=== PATIENT | female | born 1940 | race Caucasian/White ===

== ENCOUNTER 2017-07-14 18:17 | Inpatient (IN) | payer OTHER ==
[~2017-07-14] VITALS: Ht 165.1 cm; Wt 60.9 kg
[~2017-07-14 18:17] MED LIST: ALEVE220 MG PO; ARICEPT5 MG PO; BENADRYL25 MG PO; CALTRATE PLUS1 EACH PO; CELEBREX200 MG PO; CO Q-1010 MG PO; COUMADIN1 MG PO; FEOSOL325 MG PO; KRILL OIL 1,001 EACH PO; LECITHIN-191200 MG PO; METHOCARBAMOL500 MG PO; MULTIPLE VITAM1 EACH PO; MYRBETRIQ50 MG PO; ODORLESS GARLI300 MG PO; OSTEO BI-FLEX1 EAC1 PO; OXYCODONE HCL5 MG PO; SENNA-TIME S T1 EACH PO; SYNTHROID50 MCG PO; TYLENOL EXTRA500 MG PO; ZYFLAMEND PO; [UNRECOGNIZED DRUG - OTHER] PO
[2017-07-14] MEDS ORDERED: ALEVE220 MG PO (19:22)
[2017-07-14 19:37] LABS: HEMATOCRIT 36.8 % (36.0-46.0); MCH 33.2 PG (29.0-34.0); MCHC 34.2 G/DL (30.0-36.0); MCV 97.1 FL (83-99); PLATELET COUNT 158 K/uL (156-360); RED BLOOD COUNT 3.79 M/uL (3.80-5.20); WHITE BLOOD COUNT 7.4 K/uL (4.1-10.2)
[2017-07-14 20:18] LABS: CHLORIDE 109 mEq/L (99-109); POTASSIUM 3.9 mEq/L (3.7-5.4)
[2017-07-14 20:19] LABS: SODIUM 144 mEq/L (136-147)
[2017-07-14 20:20] LABS: GLUCOSE 121 mg/dL (70-99)
[2017-07-14 20:22] LABS: TROP-I INTERPRETATION NEGATIVE; TROPONIN-I 0.02 ng/mL (0.0-0.30)
[2017-07-14 20:22] LABS: ANION GAP 11 MEQ/L (2-14)
[2017-07-14 20:24] LABS: GFR ESTIMATE (CALCULATED) > 59 mL/min/
[2017-07-14 20:25] LABS: UREA NITROGEN (BUN) 21 mg/dL (9-23)
[2017-07-14 23:22] VITALS: BP 134/64
== END 2017-07-15 23:25 | disposition short-term general hospital (02) | DRG 66 ==
LOC: EME 18:17 → EDOF 19:56 → ENRESERV 19:57 → CANRESERV 22:19 → EDOF 07-15 23:25
PROVIDERS: Emergency Medicine
DX: I60.2 Nontraumatic subarachnoid hemorrhage from anterior communicating artery (principal); F03.90 Unspecified dementia, unspecified severity, without behavioral disturbance, psychotic disturbance, mood disturbance, and anxiety; M19.90 Unspecified osteoarthritis, unspecified site; Z87.891 Personal history of nicotine dependence; Z91.81 History of falling
CPT/HCPCS: 70450; 70496; 71010; 74176; 80048; 83605; 84484; 85027; 87040; 93005; 99281; 99285; C9113; J2405; J7030

== ENCOUNTER 2017-07-28 12:01 | Inpatient (IN) | payer OTHER ==
[~2017-07-28] VITALS: Ht 162.6 cm; Wt 58.0 kg
[2017-07-28 12:21] VITALS: BP 147/70
[2017-07-28] MEDS ORDERED: NIMODIPINE30 MG PO (13:45)
[2017-07-28] MEDS ORDERED: MELATONIN3 MG PO (13:46)
[2017-07-28] MEDS ORDERED: MIRALAX17 GM PO (13:46)
[2017-07-28] MEDS ORDERED: COLACE100 MG PO (13:47)
[2017-07-28] MEDS ORDERED: TYLENOL EXTRA500 MG PO (13:48)
[2017-07-28] MEDS ORDERED: ZOFRAN4 MG/2 ML IM (13:48)
[2017-07-28] MEDS ORDERED: ULTRAM50 MG PO (13:50)
[2017-07-28] MEDS ORDERED: SENNA8.6 MG PO (13:51)
[2017-07-28 15:58] VITALS: BP 168/79
[2017-07-28 22:23] LABS: ADD MIUA? YES; BILIRUBIN NEGATIVE; BLOOD NEGATIVE; COLOR YELLOW ((YELLOW)); GLUCOSE (STRIP) NEGATIVE; KETONES NEGATIVE; LEUKOCYTES NEGATIVE; NITRITE NEGATIVE; PROTEIN (STRIP) NEGATIVE; SPECIFIC GRAVITY 1.015 (1.000-1.030)
[2017-07-28 23:55] VITALS: BP 157/84
[2017-07-29 00:01] LABS: BACTERIA 1+ /HPF; EPITHELIAL CELLS NONE SEEN /HPF; MUCUS TRACE /LPF; RED BLOOD CELLS 0-5 /HPF (0-5); WHITE BLOOD CELLS 0-5 /HPF (0-5)
[2017-07-29 04:37] VITALS: BP 128/68
[2017-07-29 06:42] LABS: HEMATOCRIT 34.7 % (36.0-46.0); MCH 32.6 PG (29.0-34.0); MCHC 33.1 G/DL (30.0-36.0); MCV 98.3 FL (83-99); MEAN PLAT.VOLUME 9.7 uM^3 (9.5-12.4); RBC DIS.WIDTH-CV 12.2 % (11.8-14.6); RBC DIS.WIDTH-SD 43.8 % (39-53); RED BLOOD COUNT 3.53 M/uL (3.80-5.20)
[2017-07-29 06:53] LABS: ALKALINE PHOSPHATASE 59 IU/L (3-129); ANION GAP 9 MEQ/L (2-14); CHLORIDE 99 MEQ/L (99-109); GFR ESTIMATE (CALCULATED) > 59 mL/min/; GLUCOSE 86 mg/dL (70-99); POTASSIUM 4.5 MEQ/L (3.7-5.4); SAMPLE HEMOLYSIS CHECK 0; SAMPLE ICTERIC CHECK 0; SAMPLE LIPEMIA CHECK 0; SODIUM 135 MEQ/L (136-147); TOTAL BILIRUBIN 0.8 MG/DL (0.0-1.0); UREA NITROGEN (BUN) 17 mg/dL (9-23)
[2017-07-29 07:13] LABS: PLATELET COUNT 331 K/uL (156-360)
[2017-07-29 15:03] VITALS: BP 95/52
[2017-07-30 05:33] VITALS: BP 131/61
[2017-07-30 15:09] VITALS: BP 104/54
[2017-07-31 05:01] VITALS: BP 138/63
[2017-07-31 16:00] VITALS: BP 118/56
[2017-08-01 05:00] VITALS: BP 131/64
[2017-08-01 15:26] VITALS: BP 121/61
[2017-08-02 05:12] VITALS: BP 109/53
[2017-08-02 06:37] LABS: ALKALINE PHOSPHATASE 55 IU/L (3-129); ANION GAP 9 MEQ/L (2-14); CHLORIDE 99 MEQ/L (99-109); GFR ESTIMATE (CALCULATED) > 59 mL/min/; GLUCOSE 92 mg/dL (70-99); POTASSIUM 4.5 MEQ/L (3.7-5.4); SAMPLE HEMOLYSIS CHECK 0; SAMPLE ICTERIC CHECK 0; SAMPLE LIPEMIA CHECK 0; SODIUM 135 MEQ/L (136-147); UREA NITROGEN (BUN) 19 mg/dL (9-23)
[2017-08-02 06:41] LABS: TOTAL BILIRUBIN 0.6 MG/DL (0.0-1.0)
[2017-08-02 14:50] VITALS: BP 104/51
[2017-08-03 05:16] LABS: BASOPHIL COUNT 0.1 K/uL (0-0.1); EOSINOPHIL (%) 3.2 % (0-5); EOSINOPHIL COUNT 0.2 K/uL (0-0.3); HEMATOCRIT 34.3 % (36.0-46.0); IMMATURE GRANULOCYTE (%) 0.6 % (0.0-0.7); INSTRUMENT ABS NEUTROPHIL CT 3.1 K/uL; LYMPHOCYTE COUNT 1.2 K/uL (1.0-2.8); MCH 33.2 PG (29.0-34.0); MCHC 33.5 G/DL (30.0-36.0); MCV 99.1 FL (83-99); MEAN PLAT.VOLUME 9.9 uM^3 (9.5-12.4); MONOCYTE (%) 9.2 % (3-12); MONOCYTE COUNT 0.5 K/uL (0-0.8); NEUTROPHIL (%) 61.5 % (45-76); NEUTROPHIL COUNT 3.1 K/uL (1.8-6.4); PLATELET COUNT 271 K/uL (156-360); RBC DIS.WIDTH-SD 44.3 % (39-53); RED BLOOD COUNT 3.46 M/uL (3.80-5.20)
[2017-08-03 05:39] VITALS: BP 137/78
[2017-08-03 15:30] VITALS: BP 118/64
[2017-08-04 04:49] VITALS: BP 112/56
[2017-08-04 16:21] VITALS: BP 113/76
[2017-08-05 05:41] VITALS: BP 119/56
[2017-08-05 15:30] VITALS: BP 100/55
[2017-08-06 05:33] LABS: HEMATOCRIT 32.1 % (36.0-46.0); MCH 34.4 PG (29.0-34.0); MCV 101.3 FL (83-99); MEAN PLAT.VOLUME 10.2 uM^3 (9.5-12.4); PLATELET COUNT 206 K/uL (156-360); RBC DIS.WIDTH-SD 45.3 % (39-53); RED BLOOD COUNT 3.17 M/uL (3.80-5.20); WHITE BLOOD COUNT 6.4 K/uL (4.1-10.2)
[2017-08-06 06:00] VITALS: BP 118/56
[2017-08-06 06:02] LABS: ALKALINE PHOSPHATASE 70 IU/L (3-129); ANION GAP 9 MEQ/L (2-14); CHLORIDE 99 MEQ/L (99-109); GFR ESTIMATE (CALCULATED) > 59 mL/min/; GLUCOSE 107 mg/dL (70-99); POTASSIUM 4.3 MEQ/L (3.7-5.4); SAMPLE HEMOLYSIS CHECK 0; SAMPLE ICTERIC CHECK 0; SAMPLE LIPEMIA CHECK 0; SODIUM 137 MEQ/L (136-147); TOTAL BILIRUBIN 0.7 MG/DL (0.0-1.0); UREA NITROGEN (BUN) 15 mg/dL (9-23)
[2017-08-06 15:02] VITALS: BP 106/51
[2017-08-07 04:24] VITALS: BP 114/56
[2017-08-07 15:07] VITALS: BP 125/60
[2017-08-08 05:25] VITALS: BP 104/57
[2017-08-08 15:32] VITALS: BP 115/58
[2017-08-09 04:55] LABS: EOSINOPHIL (%) 0.5 % (0-5); HEMATOCRIT 30.2 % (36.0-46.0); IMMATURE GRANULOCYTE (%) 0.5 % (0.0-0.7); INSTRUMENT ABS NEUTROPHIL CT 4.2 K/uL; LYMPHOCYTE COUNT 0.9 K/uL (1.0-2.8); MCH 32.6 PG (29.0-34.0); MCHC 33.1 G/DL (30.0-36.0); MCV 98.4 FL (83-99); MEAN PLAT.VOLUME 10.9 uM^3 (9.5-12.4); MONOCYTE (%) 13.3 % (3-12); MONOCYTE COUNT 0.8 K/uL (0-0.8); NEUTROPHIL (%) 70.2 % (45-76); NEUTROPHIL COUNT 4.2 K/uL (1.8-6.4); PLATELET COUNT 210 K/uL (156-360); RBC DIS.WIDTH-CV 11.9 % (11.8-14.6); RBC DIS.WIDTH-SD 43.2 % (39-53); RED BLOOD COUNT 3.07 M/uL (3.80-5.20)
[2017-08-09 05:56] VITALS: BP 113/56
[2017-08-09 15:11] VITALS: BP 117/56
[2017-08-09 16:40] LABS: ALKALINE PHOSPHATASE 89 IU/L (3-129); ANION GAP 7 MEQ/L (2-14); CHLORIDE 97 MEQ/L (99-109); GFR ESTIMATE (CALCULATED) > 59 mL/min/; GLUCOSE 131 mg/dL (70-99); POTASSIUM 3.7 MEQ/L (3.7-5.4); SAMPLE HEMOLYSIS CHECK 0; SAMPLE ICTERIC CHECK 0; SAMPLE LIPEMIA CHECK 0; SODIUM 135 MEQ/L (136-147); TOTAL BILIRUBIN 0.5 MG/DL (0.0-1.0); UREA NITROGEN (BUN) 15 mg/dL (9-23)
[2017-08-10 00:11] VITALS: BP 137/74
[2017-08-10 04:59] VITALS: BP 149/70
[2017-08-10 08:45] VITALS: BP 126/60
[2017-08-10 15:27] VITALS: BP 117/63
[2017-08-10] MEDS ORDERED: DONEPEZIL HCL10 MG PO (17:08)
[2017-08-10] MEDS ORDERED: METAXALONE800 MG PO (17:08)
[2017-08-10] MEDS ORDERED: HEPARIN SO5000 UNIT4 SC (17:09)
[2017-08-10] MEDS ORDERED: PANTOPRAZOLE SO40 MG PO (17:10)
[2017-08-10] MEDS ORDERED: Salonpas 4% Patch TD (17:11)
[2017-08-10] MEDS ORDERED: BUTALB-APAP-CA1 EACH PO (17:12)
[2017-08-10] MEDS ORDERED: ULTRAM50 MG PO (17:12)
[2017-08-11 05:28] VITALS: BP 105/70
[2017-08-11 07:15] VITALS: BP 127/64
== END 2017-08-11 14:46 | DRG 57 ==
LOC: 3WEST 12:01
PROVIDERS: Physical Medicine & Rehabilitation Pain Medicine; Psychiatry & Neurology Neurology
PROC: F07M0ZZ Range of Motion and Joint Mobility Treatment of Musculoskeletal System - Whole Body (ICD-10-PCS; principal; 2017-07-28)
DX: I69.098 Other sequelae following nontraumatic subarachnoid hemorrhage (principal); R53.1 Weakness; R26.2 Difficulty in walking, not elsewhere classified; I69.065 Other paralytic syndrome following nontraumatic subarachnoid hemorrhage, bilateral; G83.0 Diplegia of upper limbs; G89.18 Other acute postprocedural pain; E03.9 Hypothyroidism, unspecified; M06.9 Rheumatoid arthritis, unspecified; F43.21 Adjustment disorder with depressed mood; M47.812 Spondylosis without myelopathy or radiculopathy, cervical region; G30.9 Alzheimer's disease, unspecified; F02.80 Dementia in other diseases classified elsewhere, unspecified severity, without behavioral disturbance, psychotic disturbance, mood disturbance, and anxiety; M79.1 Myalgia; M54.5 Low back pain; M17.11 Unilateral primary osteoarthritis, right knee; Z96.652 Presence of left artificial knee joint; Z98.2 Presence of cerebrospinal fluid drainage device
CPT/HCPCS: 70450; 71010; 72040; 80053; 81003; 85025; 85027; 87086; 92523 GN; 92526 GN; 92610 GN; 97110 GO; 97530 GP; 97532 GN; J1644